=== PATIENT | female | born 1970 | race Caucasian/White ===

== ENCOUNTER 2017-11-28 14:59 | Emergency (ER) | payer OTHER, SELFPAY ==
[2017-11-28 15:05] VITALS: BP 122/107; PULSE 217; RESP 22; TEMP 37.1; O2SAT 98; BMI 23.3
[2017-11-28] MEDS: ADENOSINE 6 MG/2 ML VIAL IV (15:10)
[2017-11-28 15:15] VITALS: BP 143/84; PULSE 109; RESP 17; O2SAT 100
[2017-11-28] MEDS: ADENOSINE 12 MG/4 ML SYRINGE IV (15:18)
[2017-11-28 15:30] VITALS: BP 107/69; PULSE 91; RESP 13; O2SAT 98
[2017-11-28] MEDS: SODIUM CHLORIDE 0.9% 1,000 ML 1000 ML IV (15:33)
[2017-11-28 16:01] VITALS: BP 95/57; PULSE 98; RESP 24; O2SAT 100
--- NOTE | 2017-11-28 16:13 | ED.ARRPALP ---
HPI - Arrhythmia/Palpitations General Chief Complaint: Arrhythmia/Palpitations Stated Complaint: CHEST PAIN, SOB, HEART IS POUNDING Time Seen by Provider: 11/28/17 15:31 Source: patient Mode of arrival: ambulatory Limitations: no limitations History of Present Illness HPI narrative: Patient is a 47-year-old female presenting with heart palpitations. She has a history of SVT and is in SVT on the monitor. She said she was hiking on [place] when she felt it. Previously she required 6 of adenosine. No other symptoms at this time. MD complaint: rapid heart beat Related Data Allergies Allergy/AdvReac Type Severity Reaction Status Date / Time No Known Drug Allergies Allergy Verified 11/28/17 15:11 Review of Systems Review of Systems GENERAL: Denies chills, fatigue, malaise, fever, sweats, travel HEENT: Denies sinus pain, ear pain, sore throat, difficulty swallowing, neck pain RESPIRATORY: Denies dyspnea, cough, wheezing, hemoptysis, sputum. CARDIOVASCULAR: See HPI GASTROINTESTINAL: Denies nausea, vomiting, abdominal pain, diarrhea, constipation, melena. : Denies dysuria, frequency, incontinence, hematuria, urinary retention, flank pain. MUSCULOSKELETAL: Denies weakness, joint pain, or bony pain SKIN: No rash, no erythema, no pruritus NEUROLOGIC: Denies weakness, dizziness, headache, numbness, change in speech, confusion PSYCHIATRIC: No concerning psychosocial issues. 12 point review of systems is negative except for those stated above and HPI PFSH Medical History SVT (supraventricular tachycardia) (Acute) Social History Smoking Status: Never smoker Exam Initial Vital Signs Initial Vital Signs: Vital Signs Temperature 98.7 F 11/28/17 15:05 Pulse Rate 217 H 11/28/17 15:05 Respiratory Rate 22 11/28/17 15:05 Blood Pressure 122/107 H 11/28/17 15:05 Pulse Oximetry 98 11/28/17 15:05 GENERAL: Well-appearing, well-nourished and in no acute distress. HEENT: Head atraumatic,EOMI, pupils reactive CARDIOVASCULAR: Tachycardic RESPIRATORY: Breath sounds equal bilaterally, no wheezes rales or rhonchi. ABDOMEN: Soft, nontender. Normoactive bowel sounds all 4 quadrants. No guarding or rebound. EXTREMITIES: Normal range of motion, no clubbing or edema. Neurovascularly intact NEUROLOGICAL: Alert and oriented x4.Normal gait and speech. Cranial nerves II through XII grossly intact. SKIN: Warm, dry, no laceration, no petechiae, no rashes or lesions. Course Orders Ordered: Discontinued Medications Adenosine (Adenocard) 6 mg IV NOW ONE Stop: 11/28/17 15:11 Last Admin: 11/28/17 15:10 Dose: 6 mg Adenosine (Adenocard) 12 mg IV NOW ONE Stop: 11/28/17 15:31 Last Admin: 11/28/17 15:18 Dose: 12 mg Sodium Chloride (Normal Saline 0.9%) 1,000 mls @ 1,000 mls/hr IV BOLUS ONE Stop: 11/28/17 16:29 Last Infusion: 11/28/17 16:38 Dose: 0 mls/hr Admin: 11/28/17 15:33 Dose: 1,000 mls/hr Reevaluation(s) Reevaluation #1: Patient feeling much better after adenosine. Heart rate has normalized and she remains in sinus rhythm. She feels ready and able to go home. Vital Signs - 8 hr 11/28/17 15:05 11/28/17 15:15 11/28/17 15:30 Temperature 98.7 F Pulse Rate 217 H 109 H 91 H Respiratory Rate 22 17 13 Blood Pressure 122/107 H Blood Pressure [Right Arm] 143/84 H 107/69 Pulse Oximetry 98 100 98 11/28/17 16:01 Temperature Pulse Rate 98 H Respiratory Rate 24 Blood Pressure Blood Pressure [Right Arm] 95/57 L Pulse Oximetry 100 MDM - Arrhythmia/Palpitations ECG Data Attestation: I personally reviewed and interpreted this ECG as follows: Prior ECG tracings: available for review Interpretation: Sinus rhythm rate [address] changes normal intervals MDM Narrative Medical decision making narrative: Patient did not convert after 6 mg of adenosine but she did convert easily after 12. Feeling much better how she remains in sinus rhythm. And feels ready and able to go. Discharge Plan Departure Patient Disposition: Home, Self-Care Clinical Impression: Supraventricular tachycardia Discharge Date/Time: 11/28/17 16:41 Interventions: ED Discharge Assessment Last Done: 11/28/17 16:38 Instructions: Paroxysmal Supraventricular Tachycardia Activity Restrictions/Additional Instructions: *You have been diagnosed with SVT *What to do: Discussed with her primary physician about metoprolol *Continue to take medications as directed *Follow up with your primary care provider in 2-3 days *Return to ER if you should have heart palpitations, dizziness, chest pain or any new, worsening or concerning symptoms
[2017-11-28 16:30] VITALS: BP 113/78; O2SAT 95
[2017-11-28 16:38] VITALS: BP 113/78; PULSE 93; RESP 15; O2SAT 97
== END 2017-11-28 16:41 | disposition home or self-care (01) ==
PROVIDERS: Emergency Provider Emergency Medicine
DX: I47.1 Supraventricular tachycardia (principal)
CPT/HCPCS: 36591; 93005; 93041; 96374; 99283; 99291; J0153